=== PATIENT | male | born 1990 | race Caucasian/White ===

== ENCOUNTER 2022-02-17 14:22 | Emergency (ER) | payer MEDICAID ==
[~2022-02-17] VITALS: Ht 175.3 cm; Wt 90.0 kg
[2022-02-17 15:13] VITALS: BP 114/43
== END 2022-02-17 16:46 | disposition left against medical advice (07) ==
LOC: ER 14:54
DX: Z53.21 Procedure and treatment not carried out due to patient leaving prior to being seen by health care provider (principal)

== ENCOUNTER 2022-04-17 09:06 | Emergency (ER) | payer MEDICAID ==
[~2022-04-17] VITALS: Ht 180.3 cm; Wt 92.0 kg
[2022-04-17 09:24] VITALS: BP 12/59
[2022-04-17] MEDS ORDERED: AMOX-494 MT (10:54)
[2022-04-17] MEDS ORDERED: IBUP-2029 MT (10:54)
== END 2022-04-17 11:04 | disposition home or self-care (01) ==
LOC: ER 09:30
DX: H66.91 Otitis media, unspecified, right ear (principal)
CPT/HCPCS: 99283